=== PATIENT | female | born 1980 | race Caucasian/White ===

== ENCOUNTER 2021-11-22 04:45 | Inpatient (IN) | payer BC ==
[~2021-11-22] VITALS: Ht 162.7 cm; Wt 63.6 kg
[2021-11-22] VITALS (18 sets, daily range): BP systolic 96–130; BP diastolic 73–101; PULSE 62–106; TEMP 97.5–98
--- NOTE | 2021-11-22 04:55 | NUR ---
G4L0 at 36 weeks and 6 days arrives to unit with complaint of rupture of membranes around 2200 last night. pt reports having an episode of emesis along with a large gush of pink tinged fluid and has continued to leak fluid since. Pt denies feeling contractions and denies bright red vaginal bleeding. Pt reports having a positive home covid test on the but had been having symptoms since last Tuesday. Symptoms have been headache, weakness, loss of appetite, and cough. pt reports pain under right breast and heartburn this . Pt has been followed by MFM for placental mass and will be a primary section as they do not want her to labor due to this mass. Pt oriented to room, call light within reach, bed in low and locked position. clean gown on. US and toco explained and provided. Grossly ruptured upon examination. SVE attempt but unable to determine dilation due to patient discomfort. Vital signs obtained. Admission assessment started.
--- NOTE | 2021-11-22 05:55 | NUR ---
18G IV started in right hand with 1 attempt. Admission labs obtained off IV start. Lactated Ringers bolus infusing to gravity. Consents reviewed and signed with patient, verbalized understanding.
[2021-11-22 06:16] LABS: HEMOGLOBIN 11.8 g/dl (12.5-16.0); MEAN CELL VOLUME 89 fl (80.0-100.0); MEAN CORPUSCULAR HEMOGLOBIN 31 pg (27-31); MEAN CORPUSCULAR HGB CONC 35 g/dl (33.0-37.0); MEAN PLATELET VOLUME 11.7 fl (7.4-10.4); PLATELET COUNT 111 K/mm3 (130-400); REDCELL DISTRIBUTION WIDTH-CV 13.2 % (11.5-14.5)
[2021-11-22 06:31] LABS: HEMATOCRIT 33.9 % (37.0-47.0)
[2021-11-22 08:22] LABS: BAND 7 % (0-10); LYMPHOCYTE 25 % (20.0-51.0); NEUTROPHILS 65 % (42.0-75.2); NUCLEATED RED BLOOD CELL 1 (0-6); PLATELET ESTIMATE DECREASED (NORMAL)
[2021-11-23] VITALS: BP 132/81; PULSE 77; TEMP 98
[2021-11-23 04:00] VITALS: BP 131/73; PULSE 64; TEMP 97.5
[2021-11-23 07:15] VITALS: BP 137/97; PULSE 84; TEMP 97.5
[2021-11-23] MEDS ORDERED: ROXICODONE 55 MG/TAB PO (09:09)
[2021-11-23] MEDS ORDERED: IBU600 MG PO (09:09)
[2021-11-23 11:05] VITALS: BP 123/75; PULSE 69; TEMP 97.8
--- NOTE | 2021-11-23 13:15 | NUR ---
THIS RN IN ROOM AT THIS TIME. PT TELLS THIS RN THAT SHE HAS NOT BEEN UP TO PEE SINCE HER 3RD VOID EARLIER THIS MORNING. SHE COMPLAINS OF BEING VERY SORE AND VERY WEAK, SIMILAR TO HOW SHE FELT WHEN SHE WAS AT HOME WITH COVID. THIS RN WATNS TO BE PRESENT THE NEXT TIME SHE GETS UP TO EVALUATE HER GAIT AND HOW SHE IS DOING. THE PT SAYS SHE WILL GET UP AND GO TO THE BATHROOM AT THIS TIME. PT MOVES SLOWLY, BUT IS ABLE TO GET UP WITH MINIMAL ASSISTANCE AND GETS TO THE BATHROOM WITH MINIMAL SUPPORT. PT IN TEARS TALKING ABOUT HOW SORE HER BODY IS, ESPESSIALLY ON THE RIGHT SIDE OF HER INCISION. WHEN PT SITS DOWN TO [facility], THIS RN NOTES HER PAD WHICH SHE HAS NOT CHANGED FOR 4 HOURS, AND IT HAS ONLY A QUARTER SIZED AMOUNT OF BLOOD ON IT. PT GETS BACK UP AND WALKS TO BED WITH MINIMAL SUPPORT. PT STILL COMPLAINING OF SHARP PAIN. PAIN MEDS WERE GIVEN AT 1255. THIS RN INSTRUCTS PT TO CALL OUT IF PAIN DOES NOT GET BETTER IN THE NEXT 15-20 MINUTES. THIS RN HELPS PT GET COMFORTABLE IN BED AND WILL CONTINUE TO MONITOR.
[2021-11-23 16:00] VITALS: BP 125/84; PULSE 73; TEMP 98.3
--- NOTE | 2021-11-23 17:00 | NUR ---
PT TOLD THIS RN THAT SHE WOULD SHOWER AT 1700. THIS RN INTO ROOM TO GIVE OTTO AND STOOL SOFTENER AND THIS PT IS ON THE PHONE WITH HER DAD TRYING TO FIGURE OUT WHEN HE CAN COME AND DROP OFF [facility] SHE STATES SHE WILL SHOWER AFTER THIS IS FIGURED OUT. THIS RN D/C IV AT THIS TIME.
--- NOTE | 2021-11-23 17:45 | NUR ---
PT CALLS OUT FOR HELP IN THE SHOWER. THIS RN ENTERS AND FINDS MOM IN THE SHOWER ON THE BENCH. SHE STATES SHE CANNOT GET THE DRESSING OFF OF HER INCISION BECAUSE OF THE PAIN. SHE IS VERY TEARFUL AND IS PUSHING THIS RN'S HAND AWAY WHEN TRYING TO HELP TAKE THE BANDAGE OFF. THIS RN EXPLAINS THAT DUE TO THE AMOUNT OF PAIN IT IS CAUSING, WE NEED TO BE ALBE TO VISUALIZE THE INCISION. AFTER GETTING DRESSING OFF, PT IS CRYING. THIS RN REASSURES HER THAT SHE DID A GREAT JOB AND THAT THE INCISION LOOKS GREAT. 1830- THIS RN GIVES REPORT TO [place] AND HAS HER COME EVALUATE IN THE ROOM. PT IS NOW TEARY AND HAS TIED HER GOWN UP ABOVE HER BELLY BECAUSE "IT HURTS WHEN ANYTHING TOUCHES IT". PT WILL NOT LET US TOUCH THE SITE. PT DESCRIBES PAIN "SHARP" AND "EXCRUTIATING". 1840- THIS RN CALLS DR. LAZO AT THIS TIME. NO NEW ORDERS. THIS RN TO TELL PT THAT ICING IT MAY HELP AND WILL STAY ON TOP OF HER PAIN MEDICAITON. DR. SARAVIA WILL EVALUATE IN THE AM.
[2021-11-23 19:00] VITALS: BP 121/84; PULSE 76; TEMP 97.7
[2021-11-24 01:14] VITALS: BP 131/89; PULSE 68
[2021-11-24 07:30] VITALS: BP 124/77; PULSE 69; TEMP 98.1
[2021-11-24 16:30] VITALS: BP 128/79; PULSE 71
--- NOTE | 2021-11-24 19:15 | NUR ---
pt reports continous sharp pain on L side of incision. States "it hurts worse when anything touches it: my underwear, the sheet, anything. It is localized to that one spot" Pt not wearing panties or gown because of this spot. No redness, discoloration or swelling noted at that location. Pt doen't allow palp[ation of the area r/t pain. Pt reports Dr Briceño aware of pain.
[2021-11-24 20:02] VITALS: BP 126/81; PULSE 73; TEMP 98.3
--- NOTE | 2021-11-24 22:30 | NUR ---
BaldevRachael INSIDE SALES ADMINISTRATOR into room to assess pain to assess anything r/t TAP block. INSIDE SALES ADMINISTRATOR reports it is remote from TAP block site on that side.
[2021-11-25 08:25] VITALS: BP 1224/72; PULSE 69; TEMP 97.5
[2021-11-25 13:30] VITALS: BP 134/86; PULSE 70; TEMP 98.1
--- NOTE | 2021-11-25 14:19 | NUR ---
1400 - DISCHARGE INSTRUCTIONS REVIEWED WITH PATIENT AND SPOUSE. PATIENT GOING TO BE BORDER STATUS.
== END 2021-11-25 14:00 | disposition home or self-care (01) | DRG 786 ==
LOC: LDRO 04:45 → LDR 05:39
PROVIDERS: Obstetrics & Gynecology; ADMIT Obstetrics & Gynecology
PROC: 10D00Z1 Extraction of Products of Conception, Low, Open Approach (ICD-10-PCS; principal; 2021-11-22)
DX: O98.52 Other viral diseases complicating childbirth (principal); U07.1 COVID-19; O99.02 Anemia complicating childbirth; D64.9 Anemia, unspecified; O43.893 Other placental disorders, third trimester; O34.13 Maternal care for benign tumor of corpus uteri, third trimester; Z37.0 Single live birth; Z3A.36 36 weeks gestation of pregnancy
CPT/HCPCS: J0690; J1885; J2175; J2370; J2405; J2590; J2791; J7120